=== PATIENT | female | born 1955 | race Caucasian/White ===

== ENCOUNTER 2016-12-12 07:32 | Emergency (ER) | payer BC ==
[2016-12-12 07:40] VITALS: BP 135/70
[2016-12-12] MEDS ORDERED: Ketorolac INJ* 60 MG/2 ML VIAL IM ONE (08:03)
--- NOTE | 2016-12-12 08:42 | RAD ---
INDICATION: Left shoulder injury. TECHNIQUE: 4 views of the left shoulder were obtained. FINDINGS: The bones are in normal alignment. No fracture is seen. There is a small calcific density adjacent to the superolateral aspect of the humeral head suggestive of calcific tendinitis. Joint spaces appear maintained. IMPRESSION: FINDINGS SUGGESTIVE OF CALCIFIC TENDINITIS.
--- NOTE | 2016-12-12 09:13 | UC ---
Saul Hernandez Benjamin, scribed for Gaby Vu MD on 12/12/16 at 0806 . Shoulder Pain HPI - HPI Summary HPI Summary: 61yo female c/o sudden onset severe left shoulder pain since Sunday that has gotten significantly worse since yesterday. Pt has hx of removal of left shoulder bone spur that wrapped around her nerve 15 years ago. Pt states that her current pain feels exactly the same as her bone spur. Pain does not radiate down to the arm. Took aspirin for pain control, but not much relief. Pt has a DM hx. - History of Current Complaint Chief Complaint: UCUpperExtremity Stated Complaint: LEFT SHOULDER PAIN Time Seen by Provider: 12/12/16 07:35 Hx Obtained From: Patient ?: No Onset/Duration: Sudden Onset, Lasting Days - 4 days, Still Present, Worse Since - yesterday Timing: Constant Severity Initially: Moderate Severity Currently: Severe - q Location Of Pain: Is Discrete @ - Left shoulder Pain Intensity: 10 Pain Scale Used: 0-10 Numeric Aggravating Factor(s): Movement, Abduction Alleviating Factor(s): Elevation Associated Signs And Symptoms: Positive: Negative - Allergies/Home Medications Allergies/Adverse Reactions: Allergies Allergy/AdvReac Type Severity Reaction Status Date / Time OBEY Inhibitors Allergy Severe Swelling Verified 06/19/13 13:14 Of Face,Lips,& Throat Angiotensin Receptor Blockers Allergy Severe Swelling Verified 05/13/13 11:39 Of Face,Lips,& Throat Home Medications: Home Medications Aspirin [Clint Aspirin] 650 mg PO 12/12/16 [History] Atenolol TAB* [Tenormin TAB* 50 MG] 50 mg PO DAILY 12/12/16 [History Confirmed 12/12/16] Desloratidine (NF) [Clarinex (NF)] 5 mg PO 12/12/16 [History] Docusate Sodium [Dss] 100 mg PO 12/12/16 [History] Exenatide [Bydureon] 2 mg SC WEEKLY 12/12/16 [History Confirmed 12/12/16] Insulin Aspart [Novolog Flexpen] 18 unit SC BID 12/12/16 [History Confirmed ] Insulin Glargine [Lantus] 19 unit SC BID 12/12/16 [History Confirmed 12/12/16] LevoCETirizine TAB (NF) [Xyzal TAB (NF)] 5 mg PO DAILY 12/12/16 [History Confirmed 12/12/16] Omeprazole [Prilosec] 20 mg PO 12/12/16 [History] PMH/Surg Hx/FS Hx/Imm Hx Endocrine History Of: Reports: Diabetes - NIDDM Cardiovascular History Of: Reports: Hypertension Respiratory History Of: Reports: Asthma - with pneumonia Other History Of: Negative For: Anticoagulant Therapy - Surgical History Surgical History: Yes Surgery Procedure, Year, and Place: removal of a bone spur, appy, hysterectomy, abd hernia repai X7, fundalplacation, choey - Family History Known Family History: Positive: Other - multiple CA - Social History Occupation: Employed Full-time Lives: Alone Alcohol Use: None Substance Use Type: None Smoking Status (MU): Never Smoked Tobacco Review of Systems Constitutional: Negative Skin: Negative Eyes: Negative ENT: Negative Respiratory: Negative Cardiovascular: Negative Gastrointestinal: Negative Genitourinary: Negative Motor: Negative Neurovascular: Negative Musculoskeletal: Arthralgia - left shoulder pain Neurological: Negative Psychological: Negative All Other Systems Reviewed And Are Negative: Yes Physical Exam Triage Information Reviewed: Yes Appearance: Well-Nourished, Pain Distress Vital Signs: Initial Vital Signs Temp 96.8 F 12/12/16 07:36 Pulse 96 12/12/16 07:36 Resp 18 12/12/16 07:36 BP 135/70 12/12/16 07:36 Pulse Ox 96 12/12/16 07:36 Vital Signs Reviewed: Yes Eye Exam: Normal ENT Exam: Normal Neck exam: Normal - no adenopathy appreciated Respiratory Exam: Normal - no dyspnea, no tachypnea Respiratory: Positive: Chest non-tender, Lungs clear, Normal breath sounds, No respiratory distress, No accessory muscle use Cardiovascular Exam: Normal - heart rate regular, good general skin color, good capillary refill correlates with L radial pulse. Cardiovascular: Positive: RRR, No Murmur, Pulses Normal Abdominal Exam: Normal Abdomen Description: Positive: Nontender, No Organomegaly, Soft Bowel Sounds: Positive: Present Musculoskeletal Exam: Other - Subj tenderness L upper deltoid region. + sens axillary nerve to LT. Distal sens LT intact. R/U pp 2+ equal. Hand grasp good. Able to straighten elbow ok, from wrist. + spasm noted post elbow, extending to neck and upper back. Mild tender ac area, but particularly tender lat humeral head and tendon insertion. PT prefers to keep hand above her head to feel better. Neurological Exam: Normal - nonfocal, grossly intact Psychological Exam: Normal - conversing easily and appropriately. Appropriately tearful. Skin Exam: Normal Diagnostics - Radiology Left shoulder XR Radiology Interpretation Completed By: Radiologist Shoulder Course/Dx - Course Course Of Treatment: No new problems in CCC. Considered below differential dx' s. Pt declines PO pain medications. Did accept ketorolac IM 60mg (no known renal f.). She is driving. Sling offered, pt declined. Her previous orthopedic surgeon has retired. I called Dr. Muñiz, orthop department chairperson. Not available at time of pt discharge. She will call to schedule an appointment. ISTOP reviewed. Reference #: [id number]. Rx norco #20 (narc talk, denies addiction hx). Rx naproxen # 30. She is aware to keep a close eye on blood sugars. See avs instructions re f/u plan. Ms. Todd was given the opportunity to ask several insightful questions, to which I answered to the best of my ability. Assessment/Plan: Calcific tendonitis L shoulder with acute exacerbation of pain - Differential Dx/Diagnosis Provider Diagnoses: L shoulder calcific tendonitis with acute pain - Physician Notification/Consults Discussed Patient Care With: Paged Dr. Muñiz (Ortho on-call) @[phone]. Per his nurse, Dr. Muñiz will call back once he is available. Discharge - Discharge Plan Condition: Stable Disposition: HOME Prescriptions: HYDROcodone/ACETAMIN 5-325 MG* [[place] 5-325 TAB*] 2 tab PO Q6H PRN #20 tab MDD 8 PRN Reason: Pain Naproxen [Naproxen 500 MG TABS] 500 mg PO BID PRN #30 tab PRN Reason: inflammation Patient Education Materials: Calcific Tendinitis (ED) Forms: *Work Release Referrals: David Taylor MD [Primary Care Provider] - Garret Muñiz MD [Medical Doctor] - Additional Instructions: Follow up with Dr. Taylor (PCP) per routine. Do call his office to let him know how you are feeling. Follow up with Dr. Muñiz ([facility] Orthopedic surgery) this week. Position of comfort for your shoulder. A sling may be helpful once the current level of inflammation improves. Please seek medical attention for worse or new problems in the meantime. The documentation as recorded by the Saul skinner Benjamin accurately reflects the service I personally performed and the decisions made by me, Gaby Vu MD.
== END 2016-12-12 09:12 | disposition home or self-care (01) ==
LOC: UCEAST 07:32
DX: M75.32 Calcific tendinitis of left shoulder (principal)
CPT/HCPCS: 99213; G0463; J1885

== ENCOUNTER 2017-02-21 08:01 | Inpatient (IN) | payer BC ==
[~2017-02-21 08:01] MED LIST: Buffered Lidocaine 1% SYRIN* 3 ML/SYR SYRINGE INTRADERM ONE; Famotidine IV* 10 MG/ML 2 ML (20 mg) IV ONE; Insulin REGULAR(*) 1 UNITS UNIT SUBCUT ONE
[2017-02-21] MEDS ORDERED: Famotidine IV* 10 MG/ML 2 ML (20 mg) ONE (08:15)
[2017-02-21] MEDS ORDERED: ceFAZolin 2 GM PREMIX(*) 2 GM/50 ML BAG IVPB ONE (08:15)
[2017-02-21] MEDS ORDERED: ceFAZolin 1 GM in Dextrose (*) 1 GM/50 ML BAG IVPB ONE (08:15)
[2017-02-21] MEDS ORDERED: Midazolam* 1 MG/ML 5 ML VIAL (5 MG) ONE (08:33)
[2017-02-21] MEDS ORDERED: fentaNYL* 50 MCG/ML 2 ML VIAL (100 MCG VIAL) ONE (08:33)
[2017-02-21] MEDS ORDERED: Dexamethasone IV* 4 MG/ML 1 ML (4 MG) ONE (08:36)
[2017-02-21] MEDS ORDERED: Ketorolac INJ* 30 MG/ML 1 ML VIAL ONE (08:36)
[2017-02-21] MEDS ORDERED: Succinylcholine* 20 MG/ML 10 ML VIAL ONE (08:36)
[2017-02-21] MEDS ORDERED: Ondansetron INJ* 2 MG/ML VIAL ONE ×2 (08:36→17:46)
[2017-02-21] MEDS ORDERED: DiMENhydriNATE IV* 50 MG/ML VIAL ONE (08:36)
[2017-02-21] MEDS ORDERED: Propofol* 10 MG/ML 20 ML BTL IV PUSH ONE ×2 (08:36→13:51)
[2017-02-21] MEDS ORDERED: Lidocaine 2% PF* 5 ML VIAL ONE (08:36)
[2017-02-21] MEDS ORDERED: ROPIVACAINE 5 MG/ML 30 ML BTL (0.5%) ONE (08:39)
[2017-02-21] MEDS ORDERED: Bupivacaine 0.25% SDV* 30 ML ONE (10:29)
[2017-02-21] MEDS ORDERED: KETAMINE HCL* 50 MG/ML 10 ML VIAL ONE (10:47)
[2017-02-21] MEDS ORDERED: fentaNYL* 50 MCG/ML 5 ML VIAL (250 MCG VIAL) ONE (11:15)
[2017-02-21] MEDS ORDERED: Phenylephrine IV* 40 MCG/ML 10 ML SYRINGE ONE (11:32)
[2017-02-21] MEDS ORDERED: EPHEDrine (Pressors)* 50 MG/ML VIAL ONE (11:32)
[2017-02-21] MEDS ORDERED: Acetaminophen TAB* 325 MG PO PRN (11:45)
[2017-02-21] MEDS ORDERED: DiMENhydriNATE IV* 50 MG/ML VIAL IV PUSH PRN (11:45)
[2017-02-21] MEDS ORDERED: HYDROmorphone* 1 MG/ML 1 ML SYR IV PRN (11:45)
[2017-02-21] MEDS ORDERED: oxyCODONE TAB* 5 MG TAB PO PRN ×2 (11:45→16:25)
[2017-02-21] MEDS ORDERED: Insulin REGULAR(*) 1 UNITS UNIT SUBCUT ONE (11:47)
[2017-02-21] MEDS ORDERED: HYDROmorphone* 1 MG/ML 1 ML SYR ONE (12:09)
[2017-02-21] MEDS ORDERED: methylPREDNISolone ACETATE 80* 80 MG/ML 1 ML VIAL ONE (12:16)
[2017-02-21] MEDS ORDERED: oxyCODONE/Acetamin 5/325 MG* TAB ONE (14:47)
[2017-02-21] MEDS ORDERED: Ondansetron INJ* 2 MG/ML VIAL IV PRN (16:25)
[2017-02-21] MEDS ORDERED: Magnesium Hydroxide LIQ* 30 ML UDC PO PRN (16:25)
[2017-02-21] MEDS ORDERED: diPHENhydraMINE IV* 50 MG/ML 1 ml VIAL (BENADRYL) IV PRN (16:25)
[2017-02-21] MEDS ORDERED: oxyCODONE/Acetamin 5/325 MG* TAB PO PRN ×2 (16:25)
[2017-02-21] MEDS ORDERED: Dextrose 50% Syringe 50 ML* 25 GM/50 ML SYRINGE IV PUSH PRN (17:16)
[2017-02-21 18:35] LABS: FIO2 4
[2017-02-21 18:38] LABS: PCO2 Arterial 52 mmHg (35-45)
[2017-02-21] MEDS: ceFAZolin 1 GM in Dextrose (*) 1 GM/50 ML BAG IVPB SCH (18:48)
[2017-02-21] MEDS ORDERED: Insulin LISPRO* 1 UNITS UNIT SUBCUT ONE (18:59)
[2017-02-21] MEDS: Insulin LISPRO* 1 UNITS UNIT SUBCUT SCH (19:01)
--- NOTE | 2017-02-21 20:52 | CONS ---
MEDICAL CONSULTATION REPORT: DATE OF CONSULT: DATE OF DICTATION: 02/21/17 PRIMARY CARE PROVIDER: Dr. David Taylor. REQUESTING PROVIDER: Dr. Noble. CONSULTING PROVIDER: SUMAN Casas SUPERVISING PHYSICIAN: Dr. Diana Saleh. CHIEF COMPLAINT: Hypoxia status post left shoulder arthroscopy. HISTORY OF PRESENT ILLNESS: This is a 61-year-old female with a history of obstructive sleep apnea for which she is noncompliant with CPAP, as well as morbid obesity, insulin-dependent diabetes, hypertension, hyperlipidemia, anxiety and depression, irritable bowel syndrome, and peripheral neuropathy, who underwent left shoulder arthroscopy with Dr. Noble earlier today. The patient has been noted to be significantly hypoxic in the postoperative period even several hours following general anesthesia. The patient is now awake and alert, but still desaturates occasionally into the mid 70s while on 2 to 3 L via nasal cannula. The patient states that she is asymptomatic denying chest pain or shortness of breath. She believes that her last sleep study was over 20 years ago when she was first diagnosed with obstructive sleep apnea. She does have a CPAP machine at home, but as stated above has not used it in several years. In regards to diabetes control, the patient states that her fasting blood glucose is between 150 and 200 mg/dL. Her last hemoglobin A1c was 7.8%. She denies any recent severe infections or other hospitalizations. The patient was seen by her primary care provider, Dr. Taylor, preoperatively. She does not have any known cardiac history apart from her obstructive sleep apnea. Has no history of chronic respiratory disease. PAST MEDICAL HISTORY: 1. Hypertension. 2. GERD. 3. Hyperlipidemia. 4. Insulin-dependent diabetes. 5. Anxiety. 6. Depression. 7. Chronic anemia. 8. Irritable bowel syndrome. 9. Obstructive sleep apnea, noncompliant with CPAP. 10. Morbid obesity with a BMI of 48. 11. Peripheral neuropathy. PAST SURGICAL HISTORY: 1. Appendectomy. 2. History of left shoulder surgery. 3. Hysterectomy. 4. Multiple abdominal hernia repairs. 5. Fundoplication. 6. Cholecystectomy. HOME MEDICATIONS: 1. Vitamin C 500 mg p.o. b.i.d. 2. Excedrin Extra Strength 2 tablets p.o. t.i.d. as needed for pain. 3. Atenolol 50 mg p.o. daily. 4. Vitamin D3 1000 units p.o. daily. 5. Clarinex 5 mg p.o. daily. 6. Docusate 100 mg p.o. twice daily. 7. Exenatide 2 subcu on Mondays. 8. Fluoxetine 40 mg p.o. daily. 9. NovoLog 18 units subcu at meal time. 10. Lantus 19 units subcu twice daily. 11. Levocetirizine 5 mg p.o. at bedtime. 12. Naproxen 500 mg p.o. b.i.d. 13. Omeprazole 20 mg p.o. daily. 14. Oxybutynin 5 to 10 mg p.o. twice daily. 15. Lyrica 100 mg p.o. at bedtime. 16. Simvastatin 20 mg p.o. at bedtime. SOCIAL HISTORY: The patient has a remote smoking history with about 15-pack year, quit about 20 years ago. She currently lives at home with her . REVIEW OF SYSTEMS: As noted above in HPI. Otherwise, the patient is denying current pain in her shoulder, abdominal pain, nausea, or vomiting. She denies any other acute complaints. PHYSICAL EXAM: Most recent vitals, temperature 97.5 degrees Fahrenheit, pulse 77 beats per minute, respiratory rate 20 per minute, oxygen saturation 90% on 2 L, blood pressure 147/73 mmHg, of note, the patient would drop into the mid 80s with speaking during interview on 3 L via nasal cannula. General: This is a pleasant 61-year-old female accompanied by her , in no acute distress. She has a left shoulder sling in place and is sitting upright in the recovery area. HEENT: Head is normocephalic, atraumatic with a moist mucous membrane. Cardiovascular: Heart has a regular rate and rhythm without murmurs, rubs, or gallops. Respiratory: Lungs are clear to auscultation without wheezes, crackles , or rhonchi. Abdomen: Abdomen is soft and nontender to palpation. Extremities: No lower extremity edema. Left shoulder is in an immobilizer. Psych: The patient is alert and appropriately oriented. Skin: Limited exam shows no concerning rashes or lesion. DIAGNOSTIC STUDIES/LAB DATA: Reviewed labs from 02/14/17, which included a CBC , hemoglobin A1c, and basic metabolic panel. CBC was unremarkable with a preop hemoglobin of 12.9 g/dL. Basic metabolic panel was also unremarkable with a preop creatinine of 0.70 and hemoglobin A1c of 7.8%. Imaging: Preoperative EKG demonstrated a normal sinus rhythm. ASSESSMENT AND PLAN: This is a 61-year-old female with a significant medical history including morbid obesity, insulin-dependent diabetes, obstructive sleep apnea for which she is noncompliant with CPAP, as well as hypertension, hyperlipidemia, anxiety, depression, irritable bowel, and gastroesophageal reflux disease, who underwent left shoulder arthroscopy with Dr. Noble earlier today and remains profoundly hypoxic several hours after anesthesia. Hospitalist group has been consulted for medical management. 1. Status post left shoulder arthroscopy - management per orthopedic surgery team. 2. Hypoxia - the patient is currently asymptomatic and appears to be mentating well. We will plan to monitor in ICU overnight. The patient will require CPAP when in a drowsy or sleeping state. Recommend obtaining an ABG at this time to help to assess if this is purely difficulty with oxygenation or if we also need to be concerned about hypercarbia. We will maintain supplemental oxygen via nasal cannula. While awake, she may require high flow for some additional positive pressure to help to maintain her airway patency. 3. Insulin-dependent diabetes - the patient reports fair control with her diabetes at home. We plan to reproduce her home insulin coverage including Lantus for the equivalent of 40 mg subcu daily and sliding scale Humalog at meal times. 4. Morbid obesity with a BMI of 48. 5. Hypertension - the patient is mildly hypertensive. She is normotensive at this time. We will plan to continue her home atenolol. 6. Hyperlipidemia. 7. Anxiety and depression. 8. Irritable bowel syndrome. 9. Peripheral neuropathy - continue Lyrica. 10. Code status - the patient is full code. 11. Healthcare proxy is her . 12. DVT prophylaxis is per orthopedic surgery team. DISPOSITION: Recommend ICU placement at least for this evening and can reevaluate tomorrow. Hospitalist group will continue to follow along with this patient. SUMAN CASAS CC: Dr. David Taylor; Dr. Noble* [id number]/[facility] #: [id number] [facility]
[2017-02-21] MEDS ORDERED: Insulin GLARGINE(*) 1 UNITS UNIT SUBCUT SCH (21:00)
[2017-02-21] MEDS: Docusate CAP* 100 MG PO SCH (21:24)
[2017-02-21] MEDS: Pregabalin CAP(*) 100 MG PO SCH (21:25)
[2017-02-21] MEDS: Oxybutynin TAB* 5 MG PO SCH (21:26)
[2017-02-21] MEDS: CMCS Simvastatin TAB(NF) 20 MG TAB PO SCH (21:26)
[2017-02-22] MEDS: ceFAZolin 1 GM in Dextrose (*) 1 GM/50 ML BAG IVPB SCH ×3 (00:49→06:02)
--- NOTE | 2017-02-22 02:19 | OP ---
DATE OF OPERATION: 02/21/17 - ROOM #ICU-02 DATE OF : 59 SURGEON: Raymond Noble MD DIETARY AIDE COOK: SUMAN Ricks. Rn Quality was needed through the entirety of the case to help positioning, retraction, was utilized throughout all portion of the case. ANESTHESIOLOGIST: Dr. Bolton. ANESTHESIA: General. PRE-OP DIAGNOSES: Left shoulder impingement, AC joint arthritis, bicipital tendonitis. POST-OP DIAGNOSES: Impingement, adhesive capsulitis, bicipital tendonitis, AC joint arthritis. OPERATIVE PROCEDURE: 1. Left shoulder arthroscopy with extensive glenohumeral debridement. 2. Lysis of adhesions. 3. Revision, subacromial decompression with acromioplasty. 4. Distal clavicle excision. 5. Manipulation under anesthesia. 6. Subacromial injection of 80 mg of Depo-Medrol. COMPLICATIONS: She did take half an hour to wake up from anesthesia and required admission into the hospital to maintain saturations. DISPOSITION: Stable. INDICATIONS: Tammy Todd is a 61-year-old female with a previous history of shoulder pain and underwent open surgical decompression which she tolerated quite well more than 10 years ago. She had recurrence of her symptoms. Again, she had some evidence of impingement as well as some loss of motion. She has tried anti- inflammatories as well as Medrol Dosepak, which helped brought her relief. She is a very poorly controlled diabetic blood glucoses that average in 200s and 300s. After an extensive discussion of the risks and benefits of the surgery versus nonoperative treatment, she has elected to proceed with surgical treatment. Risks included but are not limited to bleeding, infection, damage to nerves, vessels, surrounding structures, wound not healing, persistent pain, tearing of the rotator cuff, incomplete relief of symptoms, stiffness, persistent pain, scarring, risk of DVT, risk of anesthesia and she has elected to proceed with surgery. We did discuss that if she has a rotator cuff tear, I would not repair due to her brittle diabetes and the fact that there is a good chance that this would not heal given her body habitus as well as her uncontrolled diabetes. She verbalized understanding. DESCRIPTION OF PROCEDURE: The patient was greeted in the preoperative area by the attending surgeon. Correct extremity was marked, consent was confirmed. The patient was then brought back to the operating suite where she was placed in a supine position on the operating room table. She then underwent endotracheal intubation which she tolerated without difficulty and the patient was then carefully placed in the right lateral decubitus position with an axillary roll. All bony prominences were padded. The left arm was draped unsterile from the traction frame with 10 pounds of traction. She was supported with a peg board. The left shoulder was then prepped and draped in the usual sterile fashion beginning with chlorhexidine soap, scrub and alcohol wipe and a final prep of ChloraPrep. After appropriate surgical pause indicating side, site, procedure, and administration of antibiotics, the posterior lateral portal was made and the scope was brought into the subacromial space. The joint was very hard to access due to the adhesive capsulitis and the contractures of the capsule. The subacromial space was then accessed. The lateral portal was made in an outside- in fashion. There was evidence of abundant hyperemic bursa that was present. The shaver removed the bursa that was present. The cuff was probed and found to be intact. There was no obvious bursal sided tearing. The undersurface of the acromion was skeletonized. The previous sutures from her open surgery were visualized as well, but they were left intact. There was a moderate size anterior lateral spur along with another irregular spur as well as AC joint arthritis. The AC joint was identified and skeletonized as well. It was very stenotic. The 4-0 oval connor was then used to do an acromioplasty which did allow for removing any impingement of any spurs. Then attention was directed to the clavicle. The bur was brought into the anterior portal and the distal clavicle excision was done. Approximately 8 mm of distal clavicle was excised using the arthroscopic connor. The images were visualized and the clavicle was mobilized and found to no longer impinge. At this point, the joint was attempted to be accessed. Again, the tissues were very, very tight. The scope was able to be positioned into the joint. The rotator cuff was visualized and had high grade partial thickness tearing on the articular surface. The anterior portal was made in an outside-in fashion. The biceps was found to be scarred anteriorly. The subscap was ill defined. Her shoulder, there were very tight tissues all around. The electrocautery device was used to perform the biceps tenotomy. The MGHL as well as the abundant scar anteriorly was then carefully released as well as scar about the interval. Care was taken not to damage the rotator cuff particularly the subscapularis. The glenoid had grade 1 changes. The humeral head had grade 1 to 2 changes. The undersurface of the rotator cuff had damaged , specifically the supraspinatus tendon. However, again the decision was made to not repair this due to the fact that she is brittle diabetic and she has such severe adhesive capsulitis that this would affect her outcome. Once the debridement was complete, all fluid and debris were removed from the shoulder and needle was placed intra-articularly to place 20 cc of 0.24% Marcaine. A total of 60 cc were injected about the shoulder. 80 mg of Depo-Medrol was injected into the subacromial space. Sterile dressings were applied and she was awoken from anesthesia. This did take some time. She took half an hour or so to wake up from her procedure, but she was stable on transfer to the PACU in stable condition. POSTOPERATIVE PLAN: She will be in the sling up to the first week. She will come out as tolerated. I will have her start physical therapy in the next week. She will be discharged on pain medications as well as antibiotics due to her brittle diabetes and a revision surgery. I will discuss at length the fact that the patient does have a high-grade partial thickness rotator cuff tear that may be amendable to treatment, but she will need to have her diabetes under control prior to any treatment if she is still symptomatic. I will see the patient back in 10 to 14 days. DVTs prophylaxis was discussed, but deferred due to no previous personal or family history. She will likely be admitted with medicine consulting due to her difficulty waking up and saturation issues. CC: [place], [place] [id number]/[facility] #: [id number] [facility]
--- NOTE | 2017-02-22 07:56 | PN ---
Subjective - Subjective Reason for Note: Consultation Note History: Tammy Todd is 1 day post left shoulder arthroscopy. She developed respiratory failure post operatively with the ABGs showing low pO2 and high pCO2. She is morbidly obese and has sleep apnea - she doesn't use her home CPAP machine. She was kept in the ICU overnight and wore her CPAP. She is feeling improved this morning and her oxygenation is 98% on NC with a fI02 of 2.5 liters. She denies any chest pain, dyspnea, cough, sputum or palpitations. Her type 2 diabetes mellitus is not at target. Active Problems: Active Problems Respiratory failure with hypercapnia (Acute) J96.92 GERD (gastroesophageal reflux disease) (Chronic) K21.9 Gastroparesis (Chronic) K31.84 Hiatal hernia (Chronic) K44.9 History of arthroscopy of left shoulder (Chronic) Z98.890 Morbid obesity (Chronic) E66.01 Peripheral neuropathy (Chronic) G62.9 Sleep apnea (Chronic) G47.30 Type 2 diabetes mellitus (Chronic) Current Medications: Current Medications Acetaminophen (Tylenol Tab*) 650 mg PO Q4H PRN PRN Reason: PAIN OR TEMPERATURE Atenolol (Tenormin Tab*) 50 mg PO QAM [facility] Dextrose (D50w Syringe 50 Ml*) 12.5 gm IV PUSH .FOR FS < 60 - SS PRN PRN Reason: FS < 60 Diphenhydramine HCl (Benadryl Iv*) 25 mg IV Q6H PRN PRN Reason: itching or sleep Docusate Sodium (Colace Cap*) 100 mg PO BID [facility] Last Admin: 02/21/17 21:24 Dose: 100 mg Fluoxetine HCl (Prozac Cap*) 40 mg PO QAM [facility] Lactated Ringer's (Lactated Ringers 1000 Ml Bag*) 1,000 mls @ 125 mls/hr IV PER RATE [facility] Last Admin: 02/21/17 17:59 Dose: 125 mls/hr Insulin Glargine (Lantus(*)) 40 units SUBCUT 2100 [facility] Last Admin: 02/21/17 21:24 Dose: 40 units Insulin Human Lispro (Humalog*) 0 units SUBCUT AC BEN PRN Reason: Protocol Last Admin: 02/21/17 19:01 Dose: 6 units Magnesium Hydroxide (Milk Of Magnesia Liq*) 30 ml PO Q6H PRN PRN Reason: constipation Non-Formulary Medication (Exenatide [Bydureon Pen]) 2 mg SC MO [facility] Ondansetron HCl (Zofran Inj*) 4 mg IV Q6H PRN PRN Reason: nausea Oxybutynin Chloride (Ditropan Tab*) 5 mg PO BID [facility] Last Admin: 02/21/17 21:26 Dose: 5 mg Oxycodone HCl (Roxycodone Tab*) 10 mg PO Q4H PRN PRN Reason: PAIN - SEVERE Oxycodone/Acetaminophen (Percocet 5/325 Tab*) 1 tab PO Q4H PRN PRN Reason: PAIN - MILD TO MODERATE Oxycodone/Acetaminophen (Percocet 5/325 Tab*) 2 tab PO Q4H PRN PRN Reason: PAIN - MODERATE TO SEVERE Last Admin: 02/21/17 21:25 Dose: 2 tab Pregabalin (Lyrica Cap(*)) 100 mg PO BEDTIME [facility] Last Admin: 02/21/17 21:25 Dose: 100 mg Simvastatin (Zocor(Nf)) 20 mg PO BEDTIME [facility] Last Admin: 02/21/17 21:26 Dose: 20 mg Home Medications: Home Medications Medication Instructions Recorded Confirmed Type Ascorbic Acid TAB* [Vitamin C 500 mg PO BID 05/11/13 02/21/17 History TAB*] Cholecalciferol [D3] 1,000 unit PO QAM 05/11/13 02/21/17 History FLUoxetine CAP* [PROzac CAP*] 40 mg PO QAM 05/11/13 02/21/17 History Oxybutynin TAB* [Ditropan TAB*] 5 - 10 mg PO BID 05/11/13 02/21/17 History Pregabalin CAP(*) [Lyrica CAP(*)] 100 mg PO BEDTIME 05/11/13 02/21/17 History Simvastatin 20 mg PO BEDTIME 05/11/13 02/21/17 History Atenolol TAB* [Tenormin TAB* 50 MG] 50 mg PO QAM 12/12/16 02/21/17 History Desloratidine (NF) [Clarinex (NF)] 5 mg PO QAM 12/12/16 02/21/17 History Docusate Sodium [Dss] 100 mg PO BID 12/12/16 02/21/17 History Exenatide [Bydureon] 2 mg SC MO 12/12/16 02/21/17 History Insulin Aspart [Novolog Flexpen] 18 unit SUBCUT AC PRN 12/12/16 02/14/17 History Insulin Glargine [Lantus] 19 unit SC BID 12/12/16 02/21/17 History LevoCETirizine TAB (NF) [Xyzal TAB 5 mg PO BEDTIME 12/12/16 02/21/17 History (NF)] Omeprazole [Prilosec] 20 mg PO QAM 12/12/16 02/21/17 History Deadjyh-Ctlpigytuldda-Anblskpw 2 tab PO TID PRN 02/14/17 02/14/17 History [Excedrin Extra Strength] Epinephrine [Epipen 2-Chuy] 1 inj INJ PRN 02/14/17 History Naproxen [Naproxen 500 MG TABS] 500 mg PO BID 02/14/17 02/14/17 History Allergies: Allergies Allergy/AdvReac Type Severity Reaction Status Date / Time OBEY Inhibitors Allergy Severe Swelling Verified 02/21/17 08:21 Of Face,Lips,& Throat Angiotensin Receptor Blockers Allergy Severe Swelling Verified 02/21/17 08:21 Of Face,Lips,& Throat Objective - Vital Signs Vital Signs: Vital Signs 02/21/17 02/21/17 02/21/17 08:26 13:00 13:05 Temperature 98.1 F 96.8 F Pulse Rate 81 77 76 Respiratory 16 20 20 Rate Blood Pressure 154/81 174/86 162/76 (mmHg) O2 Sat by Pulse 93 98 98 Oximetry 02/21/17 02/21/17 02/21/17 13:10 13:15 13:30 Temperature Pulse Rate 78 80 86 Respiratory 20 20 20 Rate Blood Pressure 169/74 169/72 165/74 (mmHg) O2 Sat by Pulse 99 99 99 Oximetry 02/21/17 02/21/17 02/21/17 13:45 14:00 14:30 Temperature 97.5 F Pulse Rate 80 82 83 Respiratory 18 20 18 Rate Blood Pressure 156/74 165/79 143/77 (mmHg) O2 Sat by Pulse 95 96 93 Oximetry 02/21/17 02/21/17 02/21/17 15:00 15:30 16:00 Temperature Pulse Rate 84 82 79 Respiratory 14 18 18 Rate Blood Pressure 144/69 147/69 140/72 (mmHg) O2 Sat by Pulse 96 91 88 Oximetry 02/21/17 02/21/17 02/21/17 16:30 17:00 17:36 Temperature Pulse Rate 77 80 84 Respiratory 20 18 20 Rate Blood Pressure 147/73 143/72 149/78 (mmHg) O2 Sat by Pulse 90 91 90 Oximetry 02/21/17 02/21/17 02/21/17 17:51 17:54 18:00 Temperature Pulse Rate 77 75 Respiratory 17 18 Rate Blood Pressure 169/60 153/67 (mmHg) O2 Sat by Pulse 91 94 Oximetry 02/21/17 02/21/17 02/21/17 18:15 18:18 18:30 Temperature 98.0 F Pulse Rate 72 74 74 Respiratory 16 18 17 Rate Blood Pressure 137/67 145/58 145/58 (mmHg) O2 Sat by Pulse 94 93 95 Oximetry 02/21/17 02/21/17 02/21/17 18:45 19:00 19:15 Temperature Pulse Rate 74 72 82 Respiratory 17 16 17 Rate Blood Pressure 154/68 136/58 148/119 (mmHg) O2 Sat by Pulse 95 97 96 Oximetry 02/21/17 02/21/17 02/21/17 19:30 20:00 21:00 Temperature 97.5 F Pulse Rate 82 81 80 Respiratory 18 18 15 Rate Blood Pressure 142/61 105/86 133/61 (mmHg) O2 Sat by Pulse 97 98 91 Oximetry 02/21/17 02/21/17 02/21/17 22:00 22:22 23:00 Temperature Pulse Rate 80 77 Respiratory 15 15 15 Rate Blood Pressure 134/62 139/60 (mmHg) O2 Sat by Pulse 91 94 Oximetry 02/21/17 02/21/17 02/22/17 23:21 23:22 00:00 Temperature 97.5 F Pulse Rate 87 Respiratory 18 16 Rate Blood Pressure (mmHg) O2 Sat by Pulse 91 97 Oximetry 02/22/17 02/22/17 02/22/17 00:01 00:32 01:00 Temperature Pulse Rate 86 73 78 Respiratory 17 16 18 Rate Blood Pressure 136/66 141/61 (mmHg) O2 Sat by Pulse 83 97 98 Oximetry 02/22/17 02/22/17 02/22/17 02:00 03:00 03:55 Temperature 98.7 F Pulse Rate 75 74 Respiratory 17 14 Rate Blood Pressure 130/54 115/53 (mmHg) O2 Sat by Pulse 91 92 Oximetry 02/22/17 02/22/17 02/22/17 04:00 05:00 06:00 Temperature Pulse Rate 75 85 68 Respiratory 15 19 13 Rate Blood Pressure 117/54 135/68 129/57 (mmHg) O2 Sat by Pulse 94 94 92 Oximetry 02/22/17 07:00 Temperature Pulse Rate 74 Respiratory 14 Rate Blood Pressure 128/62 (mmHg) O2 Sat by Pulse 95 Oximetry - Intake and Output Intake and Output: Intake & Output 02/19/17 02/20/17 02/21/17 02/22/17 11:59 11:59 11:59 11:59 Intake Total 100 2805 Output Total 500 Balance 100 2305 Weight 266 lb 275 lb 12.772 oz Intake: IV Fluids 100 1800 3GM CEFAZOLIN 100 LR 1800 IVPB 165 ABX 165 Oral 840 Output: Urine 500 Other: Estimated Void Large # Voids 2 ADLs: Meal Record Start: 02/21/17 18: 18 Freq: 09,13,18 Status: Active Created 02/21/17 18:18 System (Rec: 02/21/17 18:18 System [id number]) Intake and Output Start: 02/21/17 16: 27 Freq: 06,14,2200 Status: Active Created 02/21/17 16:43 [id number] (Rec: 02/21/17 16:43 [facility] [id number]) Document 02/21/17 22:00 [id number] (Rec: 02/21/17 22:22 [id number]) Document 02/22/17 06:00 [id number] (Rec: 02/22/17 06:24 [id number]) Intake and Output Start: 02/21/17 18: 18 Freq: 06,14,22 Status: Cancelled Created 02/21/17 18:18 System (Rec: 02/21/17 18:18 System [id number]) - Physical Exam General: No Cyanosis, No Anemia, No Jaundice, No Clubbing Endocrine: Yes Central Obesity Lungs and Chest: Yes: Chest Expansion Full, Chest Expansion Symetrica, Percussion Note Resonant, Vessicular Breath Sounds. No: Crackles, Wheezes, Respiratory Distress, Use of Accessory Muscles Heart Rate and Rhythm: Regular JVP: Not Elevated Additional Cardiovascular: Yes: Normal Heart Sounds. No: Heart Murmur Abdominal Exam: Yes: Soft, Bowel Sounds Present. No: Distention, Abdominal Mass , Abdominal Tenderness - Extremities Cranial Nerves II-XII Intact: Yes Limbs: Normal Power, Normal Tone - Neuro Orientation: A/O x3 Speech: Normal Results - Results Lab Results: Laboratory Results - last 24 hr 02/21/17 02/21/17 02/21/17 08:39 13:01 18:25 Patient Temperature Not Reportable ABG pH 7.31 L ABG pCO2 52 H ABG pO2 69 L ABG HCO3 24.2 ABG O2 Saturation 93.4 L ABG Base Excess -0.8 Respiration Rate Not Reportable Ventilator Type Not Reportable Vent Mode Not Reportable FiO2 4 Inspiratory Time Not Reportable PEEP Not Reportable Pressure Support Not Reportable Pressure Control Not Reportable EPAP Not Reportable IPAP Not Reportable BiPAP Not Reportable POC Glucose (mg/dL) 208 H 191 H 02/21/17 18:44 Patient Temperature ABG pH ABG pCO2 ABG pO2 ABG HCO3 ABG O2 Saturation ABG Base Excess Respiration Rate Ventilator Type Vent Mode FiO2 Inspiratory Time PEEP Pressure Support Pressure Control EPAP IPAP BiPAP POC Glucose (mg/dL) 246 H Assessment - Problem List Assessment: Patient Problems Respiratory failure with hypercapnia (Acute) GERD (gastroesophageal reflux disease) (Chronic) Gastroparesis (Chronic) Hiatal hernia (Chronic) History of arthroscopy of left shoulder (Chronic) Morbid obesity (Chronic) Peripheral neuropathy (Chronic) Sleep apnea (Chronic) Type 2 diabetes mellitus (Chronic) Plan: Respiratory failure with hypercapnia (Acute) I think this is due to an uncovered Pickwickian syndrome that was exacerbated by her anesthesia/opioids. Her O2 desaturates to 90% on room air. We don't know if this is her usual oxygen saturation. She is not dyspneic. She clearly benefits from CPAP - she has a machine and has not used it at home. Today, we will try to wean her off the O2. I don't want her to have more than 2 liters fIO2 in view of the possibility her respiratory drive being O2 dependent. She does not require an ICU bed. I would avoid opioids for pain management Type 2 diabetes mellitus (Chronic) She is more insulin resistant than usual. She will need increased insulin coverage GERD (gastroesophageal reflux disease) (Chronic) secondary diagnosis Gastroparesis (Chronic) secondary diagnosis Hiatal hernia (Chronic) secondary diagnosis History of arthroscopy of left shoulder (Chronic) secondary diagnosis Morbid obesity (Chronic) secondary diagnosis Peripheral neuropathy (Chronic) secondary diagnosis Sleep apnea (Chronic) CPAP I think she can be managed on a general surgical [place]. I will discontinue telemetry. I explained the above to the patient
[2017-02-22] MEDS: FLUoxetine CAP* 20 MG PO SCH (08:27)
[2017-02-22] MEDS: Atenolol TAB* 50 MG PO SCH (08:27)
[2017-02-22] MEDS: Docusate CAP* 100 MG PO SCH ×2 (08:27→20:00)
[2017-02-22] MEDS: Oxybutynin TAB* 5 MG PO SCH ×2 (08:28→20:00)
[2017-02-22 08:36] LABS: Hematocrit 39 % (35-47); Hemoglobin 12.6 g/dl (12.0-16.0); Mean Corpuscular HGB Conc 33 g/dl (31-36); Mean Corpuscular Hemoglobin 27 pg (27-31); Mean Corpuscular Volume 84 fL (80-97); Mean Platelet Volume 8 um3 (7.4-10.4); Red Blood Count 4.59 10^6/ul (4.0-5.4); Red Cell Distribution Width 13 % (10.5-15); White Blood Count 14.7 10^3/ul (3.5-10.8)
[2017-02-22 08:50] LABS: BUN/Creatinine Ratio 29.4 (8-20); Calcium 8.9 mg/dL (8.6-10.3); EGFR African American 113.9 (>60); EGFR Non-African American 88.6 (>60); Potassium 4.1 mmol/L (3.5-5.0)
[2017-02-22] MEDS: Insulin GLARGINE(*) 1 UNITS UNIT SUBCUT SCH ×2 (08:58→20:01)
[2017-02-22] MEDS: Insulin LISPRO* 1 UNITS UNIT SUBCUT SCH ×3 (08:58→17:45)
--- NOTE | 2017-02-22 11:07 | PN ---
Progress Note - Progress Note SOAP: Subjective: []Patient seen at bedside, just transferred from the ICU. She had acute respiratory failure last evening after surgery and was admitted with consult placed to Dr. Taylor. Patient feeling well, denies current SOB, CP or dizziness. O2 sats 95% on RA currently. Objective: [] Vital Signs Temp 97.8 F 02/22/17 08:00 Pulse 74 02/22/17 08:11 Resp 17 02/22/17 08:11 BP 133/57 02/22/17 08:11 Pulse Ox 92 02/22/17 08:11 Intake & Output 02/21/17 02/22/17 02/22/17 18:59 06:59 18:59 Intake Total 1900 1005 Output Total 0 500 Balance 1900 505 Weight 266 lb 275 lb 12.772 oz Intake: IV Fluids 1900 3GM CEFAZOLIN 100 LR 1800 IVPB 165 ABX 165 Oral 840 Output: Urine 0 500 Other: Estimated Void Large # Voids 2 Laboratory Results - last 24 hr 02/21/17 02/21/17 02/21/17 08:39 13:01 18:25 WBC RBC Hgb Hct MCV MCH MCHC RDW Plt Count MPV Neut % (Auto) Lymph % (Auto) Traverse % (Auto) Eos % (Auto) Baso % (Auto) Absolute Neuts (auto) Absolute Lymphs (auto) Absolute Monos (auto) Absolute Eos (auto) Absolute Basos (auto) Absolute Nucleated RBC Nucleated RBC % Patient Temperature Not Reportable ABG pH 7.31 L ABG pCO2 52 H ABG pO2 69 L ABG HCO3 24.2 ABG O2 Saturation 93.4 L ABG Base Excess -0.8 Respiration Rate Not Reportable Ventilator Type Not Reportable Vent Mode Not Reportable FiO2 4 Inspiratory Time Not Reportable PEEP Not Reportable Pressure Support Not Reportable Pressure Control Not Reportable EPAP Not Reportable IPAP Not Reportable BiPAP Not Reportable Sodium Potassium Chloride Carbon Dioxide Anion Gap BUN Creatinine Est GFR ( Amer) Est GFR (Non-Af Amer) BUN/Creatinine Ratio Glucose POC Glucose (mg/dL) 208 H 191 H Calcium 02/21/17 02/22/17 02/22/17 18:44 08:23 08:25 WBC RBC Hgb Hct MCV MCH MCHC RDW Plt Count MPV Neut % (Auto) Lymph % (Auto) Traverse % (Auto) Eos % (Auto) Baso % (Auto) Absolute Neuts (auto) Absolute Lymphs (auto) Absolute Monos (auto) Absolute Eos (auto) Absolute Basos (auto) Absolute Nucleated RBC Nucleated RBC % Patient Temperature ABG pH ABG pCO2 ABG pO2 ABG HCO3 ABG O2 Saturation ABG Base Excess Respiration Rate Ventilator Type Vent Mode FiO2 Inspiratory Time PEEP Pressure Support Pressure Control EPAP IPAP BiPAP Sodium 135 Potassium 4.1 Chloride 101 Carbon Dioxide 27 Anion Gap 7 BUN 20 Creatinine 0.68 Est GFR ( Amer) 113.9 Est GFR (Non-Af Amer) 88.6 BUN/Creatinine Ratio 29.4 H Glucose 269 H POC Glucose (mg/dL) 246 H 276 H Calcium 8.9 02/22/17 08:26 WBC 14.7 H RBC 4.59 Hgb 12.6 Hct 39 MCV 84 MCH 27 MCHC 33 RDW 13 Plt Count 207 MPV 8 Neut % (Auto) 83.6 H Lymph % (Auto) 10.8 L Traverse % (Auto) 4.7 Eos % (Auto) 0 Baso % (Auto) 0.9 Absolute Neuts (auto) 12.3 H Absolute Lymphs (auto) 1.6 Absolute Monos (auto) 0.7 Absolute Eos (auto) 0 Absolute Basos (auto) 0.1 Absolute Nucleated RBC 0.01 Nucleated RBC % 0 Patient Temperature ABG pH ABG pCO2 ABG pO2 ABG HCO3 ABG O2 Saturation ABG Base Excess Respiration Rate Ventilator Type Vent Mode FiO2 Inspiratory Time PEEP Pressure Support Pressure Control EPAP IPAP BiPAP Sodium Potassium Chloride Carbon Dioxide Anion Gap BUN Creatinine Est GFR ( Amer) Est GFR (Non-Af Amer) BUN/Creatinine Ratio Glucose POC Glucose (mg/dL) Calcium Sling donned, left shoulder Left hand, no edema neuro intact will full finger motion and sensation old bloody drainage under tega derm dressing left shoulder Assessment: []s/p Left shoulder KVNG, arthroscopy, lysis of adhesions, revision subacromial decompression with distal clavicle excision POD #1 post operative acute respiratory failure with hypercapnia Plan: []Dr. Taylor has transferred her to [facility] today with plan of observing O2 sats, weaning off oxygen therapy Home when stable medically f/u as scheduled with Dr. Noble
[2017-02-22] MEDS: Pregabalin CAP(*) 100 MG PO SCH (20:00)
[2017-02-22] MEDS: CMCS Simvastatin TAB(NF) 20 MG TAB PO SCH (20:01)
[2017-02-22] MEDS: Acetaminophen TAB* 325 MG PO PRN (20:11)
[2017-02-23] MEDS: Acetaminophen TAB* 325 MG PO PRN (06:55)
--- NOTE | 2017-02-23 07:29 | PN ---
Progress Note - Progress Note Note: POD#2 from left shoulder SAD, DCE, biceps tenotomy, manipulation under anesthesia with a post op course complicated from desaturations and KATHLEEN. Pt comfortable today. Awake and alert. Has not worked on ROM yet. Temp Pulse Resp BP Pulse Ox 97.7 F 65 18 147/50 96 02/23/17 03:24 02/23/17 03:24 02/23/17 03:24 02/23/17 03:24 02/23/17 03:24 NAD> left shoulder dressing and sling intact. SILT distally. able to flex/ext digits and hand. 2+ radial pulse A/P POD#2 from above surgery pt needs PT today to work on ROM. no sling after 1 week. dispo per medicine recommendations and will need follow up with me in 10-14 days as scheduled. no LMWH on discharge. ROM as tolerated.
[2017-02-23] MEDS: Insulin LISPRO* 1 UNITS UNIT SUBCUT SCH ×2 (07:53→12:24)
[2017-02-23] MEDS: Atenolol TAB* 50 MG PO SCH (09:20)
[2017-02-23] MEDS: Docusate CAP* 100 MG PO SCH (09:20)
[2017-02-23] MEDS: FLUoxetine CAP* 20 MG PO SCH (09:20)
[2017-02-23] MEDS: Insulin GLARGINE(*) 1 UNITS UNIT SUBCUT SCH (09:20)
[2017-02-23] MEDS: Oxybutynin TAB* 5 MG PO SCH (09:20)
[2017-02-23 12:29] VITALS: BP 99/60
[2017-02-26] MEDS ORDERED: EXENATIDE 2 MG SC SCH (16:40)
== END 2017-02-23 14:55 | disposition home or self-care (01) | DRG 315 ==
LOC: OR 08:01 → ICU 16:27 → SSU 02-22 08:03
PROVIDERS: ADMIT Orthopaedic Surgery; ATTEND Orthopaedic Surgery
PROC: 0LN24ZZ Release Left Shoulder Tendon, Percutaneous Endoscopic Approach (ICD-10-PCS; 2017-02-21)
PROC: 0RBH0ZZ Excision of Left Acromioclavicular Joint, Open Approach (ICD-10-PCS; 2017-02-21)
PROC: 0PBB4ZZ Excision of Left Clavicle, Percutaneous Endoscopic Approach (ICD-10-PCS; 2017-02-21)
PROC: 0RNK4ZZ Release Left Shoulder Joint, Percutaneous Endoscopic Approach (ICD-10-PCS; principal; 2017-02-21 09:15)
DX: M25.812 Other specified joint disorders, left shoulder (principal); J95.821 Acute postprocedural respiratory failure; E11.65 Type 2 diabetes mellitus with hyperglycemia; E11.42 Type 2 diabetes mellitus with diabetic polyneuropathy; K31.84 Gastroparesis; Z68.43 Body mass index [BMI] 50.0-59.9, adult; E66.2 Morbid (severe) obesity with alveolar hypoventilation; M75.02 Adhesive capsulitis of left shoulder; M75.22 Bicipital tendinitis, left shoulder; M19.012 Primary osteoarthritis, left shoulder; G47.33 Obstructive sleep apnea (adult) (pediatric); I10 Essential (primary) hypertension; E11.43 Type 2 diabetes mellitus with diabetic autonomic (poly)neuropathy; E78.5 Hyperlipidemia, unspecified; K44.9 Diaphragmatic hernia without obstruction or gangrene; K21.9 Gastro-esophageal reflux disease without esophagitis; F41.9 Anxiety disorder, unspecified; F32.9 Major depressive disorder, single episode, unspecified; D53.9 Nutritional anemia, unspecified; Y83.9 Surgical procedure, unspecified as the cause of abnormal reaction of the patient, or of later complication, without mention of misadventure at the time of the procedure; Y92.238 Other place in hospital as the place of occurrence of the external cause; Z79.1 Long term (current) use of non-steroidal anti-inflammatories (NSAID); Z79.899 Other long term (current) drug therapy; Z79.4 Long term (current) use of insulin; Z87.891 Personal history of nicotine dependence; Z91.19 Patient's noncompliance with other medical treatment and regimen
CPT/HCPCS: 36415; 36600; 80048; 82803; 85025; 87641; 94660; 94760; A9270-GY; J0330; J0690; J1040; J1100; J1170; J1240; J1885; J2250; J2405; J2704; J2795; J3010

== ENCOUNTER 2018-08-19 15:04 | Emergency (ER) | payer BC ==
--- NOTE | 2018-08-19 16:59 | RAD ---
Indication: Leg edema. Duplex Doppler sonography of the deep venous system of the left lower extremity deep venous system was performed. Bilaterally the common femoral veins appear patent and compressible. Left proximal greater saphenous vein, proximal deep femoral vein, femoral vein, popliteal vein, posterior tibial veins and peroneal veins appear patent and compressible.One of the paired peroneal veins are not visualized. IMPRESSION: NO EVIDENCE OF DEEP VENOUS THROMBOSIS IS IDENTIFIED. ONE OF THE PAIRED PERONEAL VEINS ARE NOT VISUALIZED.
--- NOTE | 2018-08-19 17:24 | ED ---
Lower Extremity - HPI Summary HPI Summary: Patient complains of right knee pain, and anterior aguilar and posterior thigh cramps x 2 weeks. Denies trauma, SOB, CP, history of blood clots, , recent surgery or trauma. Patient is ambulatory with pain in right knee. Patient states right knee pain worse with weightbearing. Knee pain okay at rest. Medical history is DM 2, HTN, HDL. Nonsmoker, denies EtOH. - History of Current Complaint Chief Complaint: EDExtremityLower Stated Complaint: RT LEG PAIN Time Seen by Provider: 08/19/18 16:50 Hx Obtained From: Patient Mechanism Of Injury: Unknown Onset of Pain: Days Onset/Duration: Weeks Severity Initially: Moderate Severity Currently: Moderate Pain Intensity: 10 Pain Scale Used: 0-10 Numeric Timing: Intermittent Location: Is Discrete @ Character Of Pain: Aching Associated Signs And Symptoms: Positive: Knee Pain Aggravating Factor(s): Standing, Weight Bearing Alleviating Factor(s): Rest - Allergies/Home Medications Allergies/Adverse Reactions: Allergies Allergy/AdvReac Type Severity Reaction Status Date / Time OBEY Inhibitors Allergy Swelling Verified 08/19/18 17:08 Of Face,Lips,& Throat angiotensin receptor blockers Allergy Swelling Uncoded 08/19/18 17:08 Of Face,Lips,& Throat PMH/Surg Hx/FS Hx/Imm Hx Endocrine/Hematology History: Reports: Hx Diabetes - TYPE II- ON INSULIN AND ORAL MEDICATION FOR, Hx Thyroid Disease - HX OF A TEEN- NO PROBLEMS SINCE Denies: Hx Anticoagulant Therapy, Hx Anemia Cardiovascular History: Reports: Hx Hypertension - ON MEDICATION FOR Denies: Hx Pacemaker/ICD Respiratory History: Reports: Hx Asthma - with pneumonia-25 YEARS AGO, Hx Sleep Apnea - PATIENT STATES IS SEVERE-NO CPAP- SLEEPS ON RIGHT SIDE, Other Respiratory Problems/Disorders - pneumonia GI History: Reports: Hx Gastroesophageal Reflux Disease - ON MEDICATION FOR, Hx Hiatal Hernia - HAD SURGERY FOR, Hx Irritable Bowel Denies: Hx Jaundice History: Reports: Other Problems/Disorders - overactive bladder Musculoskeletal History: Reports: Hx Arthritis - OSTEO- BACK, Hx Back Problems, Hx Orthopedic Injury, Hx Tendonitis - CALCIFIC- LEFT SHOULDER Sensory History: Reports: Hx Cataracts - BILATERAL, Hx Contacts or Glasses - READING Denies: Hx Hearing Aid Opthamlomology History: Reports: Hx Cataracts - BILATERAL, Hx Contacts or Glasses - READING Psychiatric History: Reports: Hx Anxiety - ON MEDICATION FOR, Hx Depression - ON MEDICATION FOR Denies: Hx Panic Disorder, Hx Substance Abuse - Cancer History Hx Chemotherapy: No Hx Radiation Therapy: No - Surgical History Surgery Procedure, Year, and Place: removal of a bone spur LT SHOULDER-14 YEARS. 1968- APPENDECTOMY. 1996- hysterectomy. abd hernia repair X7,. KARAN FUNDOPLICATION & LAP [place] Hx Anesthesia Reactions: Yes - TOOK LONGER TO WAKE UP WITH EACH SURGERY - Immunization History Immunizations Up to Date: Yes Infectious Disease History: No Infectious Disease History: Denies: Hx Hepatitis, Hx Human Immunodeficiency Virus (HIV), Traveled Outside the [place] in Last 30 Days - Family History Known Family History: Positive: Other - multiple CA - Social History Alcohol Use: None Substance Use Type: Reports: None Smoking Status (MU): Former Smoker Amount Used/How Often: 1 PPD X 14 YEARS Have You Smoked in the Last Year: No Review of Systems Constitutional: Negative Eyes: Negative ENT: Negative Cardiovascular: Negative Respiratory: Negative Gastrointestinal: Negative Genitourinary: Negative Positive: Arthralgia, Myalgia Skin: Negative Neurological: Negative Psychological: Normal All Other Systems Reviewed And Are Negative: Yes Physical Exam - Summary Physical Exam Summary: No swelling, erythema, ecchymosis, deformity, extra warmth, wound noted to bilateral knees, bilateral lower extremity is. PMS intact distally bilaterally. No evidence of DVT on exam. Mild tenderness to palpation along lateral and medial aspects of right knee. Normal range of motion with pain of right knee. Triage Information Reviewed: Yes Vital Signs On Initial Exam: Initial Vitals Temp Pulse Resp BP Pulse Ox 97.9 F 91 16 133/78 94 08/19/18 15:15 08/19/18 15:15 08/19/18 15:15 08/19/18 15:15 08/19/18 15:15 Vital Signs Reviewed: Yes Appearance: Positive: Well-Appearing Skin: Positive: Warm Head/Face: Positive: Normal Head/Face Inspection Eyes: Positive: Normal Neck: Positive: Supple Respiratory/Lung Sounds: Positive: Clear to Auscultation Cardiovascular: Positive: Normal Abdomen Description: Positive: Nontender Musculoskeletal: Positive: Normal Neurological: Positive: Normal Psychiatric: Positive: Normal AVPU Assessment: Alert - Burton Coma Scale Best Eye Response: 4 - Spontaneous Best Motor Response: 6 - Obeys Commands Best Verbal Response: 5 - Oriented Coma Scale Total: 15 Diagnostics - Vital Signs Vital Signs Temp Pulse Resp BP Pulse Ox 08/19/18 15:15 97.9 F 91 16 133/78 94 - Laboratory Lab Statement: Any lab studies that have been ordered have been reviewed, and results considered in the medical decision making process. - Ultrasound No standard instances Ultrasound Interpretation: No Acute Changes - Negative for DVT bilaterally Ultrasound Interpretation Completed By: Radiologist Lower Extremity Course/Dx - Course Course Of Treatment: Patient complains of right knee pain, and anterior aguilar and posterior thigh cramps x 2 weeks. Denies trauma, SOB, CP, history of blood clots, , recent surgery or trauma. Patient is ambulatory with pain in right knee. Patient states right knee pain worse with weightbearing. Knee pain okay at rest. Medical history is DM 2, HTN, HDL. Nonsmoker, denies EtOH. Physical exam:No swelling, erythema, ecchymosis, deformity, extra warmth, wound noted to bilateral knees, bilateral lower extremity is. PMS intact distally bilaterally. No evidence of DVT on exam. Mild tenderness to palpation along lateral and medial aspects of right knee. Normal range of motion with pain of right knee. Vital signs within normal limits. Ultrasound negative for DVTs bilaterally. Follow-up with orthopedics. - Diagnoses Provider Diagnoses: Right knee pain, Muscle cramps Discharge - Sign-Out/Discharge Documenting (check all that apply): Patient Departure - Discharge Plan Condition: Stable Disposition: HOME Prescriptions: HYDROcodone/ACETAMIN 5-325 MG* [[place] 5-325 TAB*] 1 tab PO Q6H PRN 2 Days #4 tab MDD 4 tabs PRN Reason: Pain Patient Education Materials: Leg Cramps (ED), Swollen Knee Joint (ED), Knee Pain (ED) Referrals: David Taylor MD [Primary Care Provider] - Maria Eugenia Hunter MD [Medical Doctor] - Additional Instructions: Follow-up with orthopedics Dr Hunter for further evaluation of right knee pain. Rest, ice, Tylenol or ibuprofen for pain. Return to the ED for any new or worsening symptoms - Billing Disposition and Condition Condition: STABLE Disposition: Home
--- NOTE | 2018-08-19 17:44 | RAD ---
Indication: RIGHT knee pain and unable to bear weight today. Comparison: None. Technique: RIGHT knee: AP, tunnel, crosstable lateral, sunrise views. Report: Negative for joint effusion, fracture, or malalignment. Mild osteophytosis. Negative for significant joint space narrowing. Nonfocal soft tissue swelling. IMPRESSION: #. Nonfocal soft tissue swelling without significant additional radiographic abnormality.
[2018-08-19 18:48] VITALS: BP 158/80
== END 2018-08-19 18:47 | disposition home or self-care (01) ==
LOC: ED 15:04
DX: M25.561 Pain in right knee (principal); M62.838 Other muscle spasm; M79.89 Other specified soft tissue disorders; E11.9 Type 2 diabetes mellitus without complications; I10 Essential (primary) hypertension; E78.5 Hyperlipidemia, unspecified; F41.9 Anxiety disorder, unspecified; F32.9 Major depressive disorder, single episode, unspecified; Z87.891 Personal history of nicotine dependence; Z79.84 Long term (current) use of oral hypoglycemic drugs; Z79.4 Long term (current) use of insulin; Z79.899 Other long term (current) drug therapy; Z88.8 Allergy status to other drugs, medicaments and biological substances
CPT/HCPCS: 93970; 99282

== ENCOUNTER 2018-09-27 10:16 | Inpatient (IN) | payer BC ==
[~2018-09-27 10:16] MED LIST changes: +Buffered Lidocaine 0.9% SYRIN* 5 ML/SYR SYRINGE INTRADERM ONE; -Buffered Lidocaine 1% SYRIN* 3 ML/SYR SYRINGE INTRADERM ONE; -Insulin REGULAR(*) 1 UNITS UNIT SUBCUT ONE; +Metoclopramide IV* 5 MG/ML 2 ML VIAL IV SLOW PU ONE
[2018-09-27] MEDS ORDERED: Famotidine IV* 10 MG/ML 2 ML (20 mg) ONE (11:09)
[2018-09-27] MEDS ORDERED: ceFAZolin 2 GM PREMIX in ORs 2 GM/50 ML BAG IVPB ONE (11:09)
[2018-09-27] MEDS ORDERED: Metoclopramide IV* 5 MG/ML 2 ML VIAL ONE (11:10)
[2018-09-27] MEDS ORDERED: Insulin LISPRO* 1 UNITS UNIT SUBCUT ONE (12:32)
[2018-09-27] MEDS ORDERED: EPINEPHRINE 1 MG/ML 1 ML VIAL ONE (12:52)
[2018-09-27] MEDS ORDERED: Bupivacaine 0.5% W/EPI SDV* 30 ML VIAL ONE (12:52)
[2018-09-27] MEDS ORDERED: fentaNYL* 50 MCG/ML 2 ML VIAL (100 MCG VIAL) ONE (13:04)
[2018-09-27] MEDS ORDERED: Propofol* 10 MG/ML 20 ML BTL IV PUSH ONE (13:04)
[2018-09-27] MEDS ORDERED: Midazolam* 1 MG/ML 2 ML VIAL (2 MG) ONE (13:04)
[2018-09-27] MEDS ORDERED: Lidocaine 2% PF * 5 ML VIAL ONE (13:05)
[2018-09-27] MEDS ORDERED: Phenylephrine INJ* 10 MG/ML 1 ML VIAL (10 MG) ONE (13:25)
[2018-09-27] MEDS ORDERED: Ondansetron INJ* 2 MG/ML VIAL ONE (13:38)
[2018-09-27] MEDS ORDERED: DiMENhydriNATE IV* 50 MG/ML VIAL IV PUSH PRN (13:43)
[2018-09-27] MEDS ORDERED: fentaNYL* 50 MCG/ML 2 ML VIAL (100 MCG VIAL) IV PRN (13:43)
[2018-09-27] MEDS ORDERED: Ketorolac INJ* 30 MG/ML 1 ML VIAL IV PRN (13:43)
[2018-09-27] MEDS ORDERED: oxyCODONE/Acetamin 5/325 MG* TAB PO PRN (13:43)
[2018-09-27] MEDS ORDERED: Naloxone* 0.4 MG/ML 1 ML VIAL IV PRN (13:43)
[2018-09-27] MEDS ORDERED: HYDROcodone/ACETAMIN 5-325 MG* 1 TAB PO PRN (13:43)
[2018-09-27] MEDS ORDERED: oxyCODONE/Acetamin 5/325 MG* TAB ONE (15:16)
[2018-09-27] MEDS ORDERED: diPHENhydraMINE IV* 50 MG/ML 1 ml VIAL (BENADRYL) IV PRN (16:17)
[2018-09-27] MEDS ORDERED: Acetaminophen TAB* 325 MG PO PRN (16:17)
[2018-09-27] MEDS ORDERED: Ondansetron INJ* 2 MG/ML VIAL IV PRN (16:17)
[2018-09-27] MEDS ORDERED: INSULIN ASPART SUBCUT PRN (16:21)
[2018-09-27] MEDS ORDERED: Dextrose 50% Syringe 50 ML* 25 GM/50 ML SYRINGE IV PUSH PRN (17:47)
[2018-09-27] MEDS: traMADol TAB* 50 MG PO PRN (18:27)
[2018-09-27] MEDS: Gabapentin CAP(*) 300 MG PO SCH (21:02)
[2018-09-27] MEDS: Insulin GLARGINE(*) 1 UNITS UNIT SUBCUT SCH (21:05)
[2018-09-27] MEDS: Oxybutynin TAB* 5 MG PO SCH ×2 (22:10→22:11)
[2018-09-27] MEDS: Cetirizine* 10 MG TAB PO SCH (22:10)
[2018-09-27] MEDS: oxyCODONE/Acetamin 5/325 MG* TAB PO PRN (22:11)
[2018-09-28] MEDS: traMADol TAB* 50 MG PO PRN ×2 (00:30→20:34)
[2018-09-28] MEDS: oxyCODONE/Acetamin 5/325 MG* TAB PO PRN ×5 (01:58→22:30)
[2018-09-28] MEDS: FLUoxetine CAP* 20 MG PO SCH (09:04)
[2018-09-28] MEDS: Insulin LISPRO* 1 UNITS UNIT SUBCUT SCH ×3 (09:05→18:39)
[2018-09-28] MEDS: amLODIPine TAB* 5 MG PO SCH (09:05)
[2018-09-28] MEDS: Gabapentin CAP(*) 300 MG PO SCH ×3 (09:05→20:33)
[2018-09-28] MEDS: Oxybutynin TAB* 5 MG PO SCH ×2 (09:05→20:34)
[2018-09-28] MEDS: Insulin GLARGINE(*) 1 UNITS UNIT SUBCUT SCH ×2 (09:06→20:55)
--- NOTE | 2018-09-28 09:32 | PN ---
Progress Note - Progress Note Date of Service: 09/28/18 SOAP: Subjective: [Pt reports L knee pain 08/05. Has been up to bathroom but has ambulated no further. Denies CP,nausea, dizziness. On O2. Tells me she has no help at home. ] Objective: [A and O x 3, NAD. Seated in chair. L knee dressing C/D/I. Cryounit in place. Calf soft, NT. Distal gross motor, NV function intact. Vital Signs: Temp Pulse Resp BP Pulse Ox 98.0 F 78 18 143/71 100 09/28/18 04:07 09/28/18 04:07 09/28/18 09:05 09/28/18 04:07 09/28/18 04:07 Laboratory Results - last 24 hr 09/27/18 09/27/18 09/27/18 12:14 13:47 21:09 POC Glucose (mg/dL) 206 H 174 H 218 H 09/28/18 08:25 POC Glucose (mg/dL) 163 H ] Assessment: [63 yo female s/p L knee arthroscopy POD #1] Plan: [Pain management Physical therapy - WBAT LLE Elevation of LLE IS Plan for D/C home tomorrow]
[2018-09-28] MEDS: Cetirizine* 10 MG TAB PO SCH (20:34)
[2018-09-29] MEDS: oxyCODONE/Acetamin 5/325 MG* TAB PO PRN ×4 (04:02→20:06)
[2018-09-29] MEDS: amLODIPine TAB* 5 MG PO SCH (07:46)
[2018-09-29] MEDS: FLUoxetine CAP* 20 MG PO SCH (07:46)
[2018-09-29] MEDS: Docusate CAP* 100 MG PO PRN ×2 (07:46→20:07)
[2018-09-29] MEDS: Gabapentin CAP(*) 300 MG PO SCH ×3 (07:48→20:06)
[2018-09-29] MEDS: Oxybutynin TAB* 5 MG PO SCH ×2 (07:48→20:07)
--- NOTE | 2018-09-29 08:20 | PN ---
Progress Note - Progress Note Date of Service: 09/29/18 SOAP: Subjective: [Patient reports more pain today than yesterday. Has had to use bedside commode because difficult to walk to bathroom. Concerned about being home alone. Denies CP, Nausea, Dizziness] Objective: [A and O x 3, NAD. Appears to resting comfortably in bed. R knee dressing changed. Portal sites benign. No drainage or erythema. Mild swelling R knee. Calf soft , NT. Distal gross motor, NV function intact Vital Signs: Temp Pulse Resp BP Pulse Ox 98.6 F 79 18 143/70 97 09/29/18 07:56 09/29/18 07:56 09/29/18 08:00 09/29/18 07:56 09/29/18 08:00 Laboratory Results - last 24 hr 09/28/18 09/28/18 09/28/18 11:55 17:40 20:51 POC Glucose (mg/dL) 210 H 164 H 201 H ] Assessment: [63 yo female s/p R knee arthroscopy POD #2] Plan: [Encourage OOB - ambulation, ROM PT - WBAT RLE Elevate R leg while in bed Pain management Plan for D/C home tomorrow]
[2018-09-29] MEDS: Insulin GLARGINE(*) 1 UNITS UNIT SUBCUT SCH ×2 (09:24→22:32)
[2018-09-29] MEDS: Insulin LISPRO* 1 UNITS UNIT SUBCUT SCH ×3 (09:24→18:02)
[2018-09-29] MEDS: Naproxen TAB* 250 MG PO SCH ×2 (12:01→23:41)
[2018-09-29] MEDS: Cephalexin CAP* 500 MG PO SCH ×2 (13:20→20:07)
[2018-09-29] MEDS: traMADol TAB* 50 MG PO PRN ×2 (16:38→23:41)
[2018-09-29] MEDS: Cetirizine* 10 MG TAB PO SCH (20:07)
--- NOTE | 2018-09-30 01:02 | OP ---
DATE OF OPERATION: 09/27/18 - ROOM #341 DATE OF : 59 SURGEON: Bib Henao MD INDIVIDUAL SMALL GROUP INSTRUCTOR: SUMAN Mcneill. A physician assistant sales director was required for the length of the procedure for assistance with positioning, knee manipulation, and closure. ANESTHESIOLOGIST: Dr. Jaja Wilson. ANESTHESIA: General anesthesia, local anesthesia consisting of 0.5% Marcaine with epinephrine, 10 cc, placed subcutaneous. PRE-OP DIAGNOSIS: Right knee lateral meniscus tear. POST-OP DIAGNOSIS: Right knee lateral meniscus tear. OPERATIVE PROCEDURE: Right knee arthroscopic partial lateral meniscectomy. ANTIBIOTICS: Ancef 2 g IV. IV FLUIDS: See anesthesia note. TOURNIQUET TIME: 23 minutes at 300 mmHg. OFUX-MO-ZBDL TIME: Approximately 19 minutes. SPECIMENS: None. IMPLANTS: None. ESTIMATED BLOOD LOSS: Minimal. 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 The patient corrected her account to state that she had been in pain since May or June 2018 but that it had exacerbated in July. At one point, the patient had stayed in bed for several days because of the significance of the pain. The patient declined a cortisone injection. We got an MRI, which demonstrated a lateral meniscus tear. Described as complex by radiologist. I felt there was a possibility of a root tear. We discussed treatment options including physical therapy, cortisone injection, or surgical management. The patient was uninterested in cortisone injections because of her diabetes mellitus and a possible temporary increase in serum blood glucose level. Given the severity of the patient's pain, her difficulty walking and weightbearing, the patient opted for surgery rather than physical therapy. The patient was noted to have an elevated hemoglobin A1c level. Given the significance of the patient's pain, the patient was wiling to accept any increased risk of complication, specifically infection, given this poorly controlled diabetes. We discussed this with the patient's primary care physicians and they felt comfortable with her proceeding forward with surgery. Also of note was the patient's BMI of 47.5. On the initial planned date for surgery, the patient presented with an upper respiratory infection and wheezing on exam. We canceled the surgery. The patient was treated for this infection by her primary care physician and returned for surgery when that had resolved. The patient did note in preoperative workup to perioperative nursing staff that she had required admissions for multiple prior procedures because of low oxygen saturations. The patient states that she has a CPAP or BiPAP at home, but does not use it. DESCRIPTION OF THE PROCEDURE: Preoperatively, the patient signed a written consent. Operative extremity was marked in preoperative holding. The patient was taken back to the operating room and placed supine on the operating room table. Anesthesia kept the bed in some reverse Trendelenburg to assist with the patient's breathing. The patient was sedated and intubated. A tourniquet was placed around the right proximal thigh and the right distal thigh was placed in a circumferential thigh robert. The table was elevated and the foot of the table was dropped. The right lower extremity was prepped with chlorhexidine and ChloraPrep. Surgical time- out was performed. Esmarch was applied and the tourniquet was elevated to 300 mmHg. Right knee anterolateral arthroscopy portal was established using standard technique. The patient had some bursitis in the anterior compartment. I got down to the anterior compartment of the knee. Because of the shelf of synovitic tissue anteriorly, I first established an anteromedial portal to debride this. I entered an arthroscopic shaver through the anteromedial portal and I debrided the shelf of synovitic tissue anteriorly as well as the ligamentum mucosum. There was some minimal wear in the patellofemoral compartment, the undersurface of the patella it should be noted, a grade 1 or 2. I next proceeded to the medial compartment. No significant meniscus or articular cartilage changes there. ACL and PCL were intact. We proceeded to the lateral compartment. The patient had grade 1 and grade 2 changes throughout the lateral femoral condyle and lateral tibial plateau. There was meniscus tearing, complex, in the body and posterior horn of the lateral meniscus. This also, I found, involved the anterior horn. Working through the medial and then the lateral portals, I debrided the meniscus , lateral, back to a stable rim with arthroscopic shaver and meniscus biters. I had been concerned preoperatively about a possible posterior root tear. There was none. There were no large displaced flaps. This was a complex relatively nondisplaced tear. As I debrided the anterior horn in the anterior aspect of the body, I noted that the tear was predominantly horizontal in this location. The inner surface of the meniscus was of very poor quality in this location. I considered debriding back the 2 flaps of the meniscus anteriorly, but I limited the amount of my debridement, so as not to remove the entire anterior horn. This appeared stable. The patient had no focal articular cartilage loss, it was just more thorough grade 1 and 2 changes throughout the lateral compartment articular cartilage. I removed the instruments and fluids from the knee. Closed the skin incisions with [id number] and 12 stitches using nylon 3-0 suture. Placement of local anesthetic into the subcutaneous tissues, Marcaine 0.5% with epinephrine. Xeroform, 4x4s, ABDs, sterile Webril, Yehuda bandage, foot to proximal thigh. Tourniquet was dropped. Cooling unit was placed. The patient was awakened, extubated, and transferred to the PACU. DISPOSITION: In the PACU, the patient had low oxygen saturations, as she herself had predicted to nurses in preoperative holding, given her history of low oxygen saturations postoperatively even after very short procedures such as this. The patient was therefore admitted to the hospital for respiratory therapy and possible medical management of this. Her blood glucoses would be controlled. Physical therapy for aggressive range of motion and strengthening. The patient will be given aspirin for 2 weeks postoperatively for DVT prophylaxis as well as Percocet as needed for pain control. Due to the patient' s poorly controlled diabetes with a hemoglobin A1c of approximately 9.7, I decided to err on the side of caution and prescribed the patient 5 days of Keflex oral antibiotics over and above the Ancef 2 g given to the patient perioperatively. The patient will follow up with me in clinic 10 to 14 days postoperatively. She will be discharged from the hospital when medically stable and safe to return home. [id number]/[facility] #: [id number] DAX
[2018-09-30] MEDS: Cephalexin CAP* 500 MG PO SCH (08:55)
[2018-09-30] MEDS: FLUoxetine CAP* 20 MG PO SCH (08:55)
[2018-09-30] MEDS: traMADol TAB* 50 MG PO PRN (08:56)
[2018-09-30] MEDS: Oxybutynin TAB* 5 MG PO SCH (08:56)
[2018-09-30] MEDS: amLODIPine TAB* 5 MG PO SCH (08:56)
[2018-09-30] MEDS: oxyCODONE/Acetamin 5/325 MG* TAB PO PRN (08:57)
[2018-09-30] MEDS: Gabapentin CAP(*) 300 MG PO SCH (08:58)
[2018-09-30] MEDS: Insulin GLARGINE(*) 1 UNITS UNIT SUBCUT SCH (09:03)
[2018-09-30] MEDS: Insulin LISPRO* 1 UNITS UNIT SUBCUT SCH (09:05)
[2018-09-30] MEDS: Docusate CAP* 100 MG PO PRN (09:19)
--- NOTE | 2018-09-30 10:49 | PN ---
Progress Note - Progress Note Date of Service: 09/30/18 SOAP: Subjective: []Patient was seen and examined at bedside. She feels well with well controlled right knee pain. Denies CP, SOB, dizziness, nausea. Objective: []General: Well appearing, NAD RLE: Dressing changed, incisions CDI without discharge or erythema. ROM 5-90 without pain. Calves supple and nontender without erythema or edema. Assessment: [] POD 3 s/p R knee arthroscopic PLM. DM, poorly controlled, chronic disordered breathing Plan: [] Encouraged movement, OOB, PT Continue Keflex 500mg po tid x 5 days given the patient's poorly controlled diabetes and poor general health DC home today ASA 325 BID until follow up Trial off of O2. Per patient her breathing has been baseline Temp Pulse Resp BP Pulse Ox 98.0 F 74 18 146/68 97 09/30/18 07:59 09/30/18 07:59 09/30/18 10:46 09/30/18 07:59 09/30/18 07:59
[2018-09-30] MEDS: Naproxen TAB* 250 MG PO SCH (11:11)
[2018-09-30 12:11] VITALS: BP 145/52
--- NOTE | 2018-10-01 01:53 | DS ---
DISCHARGE SUMMARY: DATE OF ADMISSION: 09/27/18 DATE OF DISCHARGE: 09/30/18 PROVIDER: Bib Henao MD * (DICTATED BY SUMAN REYES) PRE-OP DIAGNOSIS: Right knee lateral meniscus tear. OPERATIVE PROCEDURE: Right knee arthroscopic partial lateral meniscectomy. HISTORY: The patient is a 63-year-old woman with right knee pain since either May or June 2018 after a fall at home, pain worsening in July 2018. The patient declined a cortisone injection. MRI showed a lateral meniscus tear. The patient was offered both surgical and nonsurgical options and she elected to undergo a right knee arthroscopic partial lateral meniscectomy. HOSPITAL COURSE: The patient was admitted to [facility] on . She underwent a right knee arthroscopic partial lateral meniscectomy without complication. She recovered briefly in the PACU. Due to low oxygen saturations, the patient was admitted to the hospital. On postop day 1, she was alert and oriented x3, in no acute distress. Distal gross motor and neurovascular function was intact. Postop day 2, the patient was feeling unsafe to go home and having a significant amount of pain. Postop day 3, dressing was changed, incisions clean, dry, and intact without discharge or erythema. Range of motion 5 to 90 without pain. The patient was feeling safe to go home today. During her stay, she was using oxygen between 1 and 5 L on day of discharge; before discharge, her oxygen was removed and she maintained an oxygen saturation of 100%. The patient was deemed to be medically and orthopedically stable for discharge to home. DISCHARGE DISPOSITION: To home. DISCHARGE MEDICATIONS: The patient will be resuming her home medications, which include: 1. Prozac 40 mg p.o. q.a.m. 2. Oxybutynin 5 to 10 mg p.o. b.i.d. 3. Vitamin C 1000 mg p.o. q.a.m. 4. Xyzal 5 mg p.o. bedtime. 5. Omeprazole 20 mg p.o. q.a.m. 6. Insulin 22 units subcu b.i.d. 7. Exenatide microspheres 2 mg subc as directed. 8. EpiPen as needed. 9. Amlodipine 5 mg p.o. q.a.m. 10. Gabapentin 300 mg p.o. t.i.d. 11. Acetaminophen 1000 mg p.o. q.6 hours p.r.n. 12. Docusate 100 mg p.o. b.i.d. p.r.n. 13. Insulin aspart 18 to 20 units subcu a.c. p.r.n. 14. Simvastatin 20 mg p.o. bedtime. 15. Vitamin D3 2000 units p.o. q.a.m. 16. Tramadol 50 mg p.o. q.6 hours p.r.n., max daily dose of 6. 17. Aspirin 325 mg p.o. b.i.d. for 2 weeks. 18. Keflex 500 mg p.o. t.i.d. for the remainder of 5 days. DISCHARGE PLAN: The patient will be discharged to home. She will be weightbearing as tolerated. She will start physical therapy outpatient right away. She may change her dressing daily with gauze and Yehuda wrap. She may shower, do not submerge the wound. Aspirin 325 mg every 12 hours until followup appointment. Keflex 500 mg every 8 hours for 5 days. Pain control with tramadol 50 mg 1 tablet every 4 to 6 hours, max of 6 per day, wean off as soon as pain allows. Follow up with Dr. Henao in 10 to 14 days postop. Call our office with any concerns to make a postop appointment. SUMAN REYES [id number]/[facility] #: [id number] DAX
[2018-10-01] MEDS ORDERED: EXENATIDE MICROSPHERES 2 MG SC SCH (16:21)
== END 2018-09-30 12:15 | disposition home health service (06) | DRG 313 ==
LOC: OR 10:16 → SSU 16:17
PROVIDERS: ADMIT Orthopaedic Surgery; ATTEND Orthopaedic Surgery
PROC: 0SBC4ZZ Excision of Right Knee Joint, Percutaneous Endoscopic Approach (ICD-10-PCS; principal; 2018-09-27 12:45)
DX: S83.271A Complex tear of lateral meniscus, current injury, right knee, initial encounter (principal); Z68.42 Body mass index [BMI] 45.0-49.9, adult; I10 Essential (primary) hypertension; K21.9 Gastro-esophageal reflux disease without esophagitis; E66.01 Morbid (severe) obesity due to excess calories; M17.11 Unilateral primary osteoarthritis, right knee; M19.012 Primary osteoarthritis, left shoulder; E78.2 Mixed hyperlipidemia; K58.9 Irritable bowel syndrome, unspecified; E11.43 Type 2 diabetes mellitus with diabetic autonomic (poly)neuropathy; K31.84 Gastroparesis; G47.33 Obstructive sleep apnea (adult) (pediatric); M70.51 Other bursitis of knee, right knee; W19.XXXA Unspecified fall, initial encounter; E11.65 Type 2 diabetes mellitus with hyperglycemia; E78.00 Pure hypercholesterolemia, unspecified; E55.9 Vitamin D deficiency, unspecified; E11.42 Type 2 diabetes mellitus with diabetic polyneuropathy; F41.1 Generalized anxiety disorder; F32.9 Major depressive disorder, single episode, unspecified; Z80.42 Family history of malignant neoplasm of prostate; Z82.61 Family history of arthritis; Z80.8 Family history of malignant neoplasm of other organs or systems; Z83.6 Family history of other diseases of the respiratory system; Z82.49 Family history of ischemic heart disease and other diseases of the circulatory system; Z80.51 Family history of malignant neoplasm of kidney; Z83.49 Family history of other endocrine, nutritional and metabolic diseases; Z99.81 Dependence on supplemental oxygen; Z79.82 Long term (current) use of aspirin; Z79.4 Long term (current) use of insulin; Y92.009 Unspecified place in unspecified non-institutional (private) residence as the place of occurrence of the external cause; Z90.49 Acquired absence of other specified parts of digestive tract; Z90.710 Acquired absence of both cervix and uterus; Z88.8 Allergy status to other drugs, medicaments and biological substances
CPT/HCPCS: 94660; A9270-GY; J0690; J2250; J2405; J2704; J2765; J3010

== ENCOUNTER 2019-10-16 11:20 | Emergency (ER) | payer BC ==
[2019-10-16 11:31] VITALS: BP 145/68
--- NOTE | 2019-10-16 12:24 | UC ---
Hand/Wrist HPI - HPI Summary HPI Summary: Patient is a 64-year-old female presenting with pain of right fifth finger times one month. Patient states she fell a month ago and had "creaky feeling." She had berkley taped the finger and states pain has still gradually worsened. Notes there has been swelling and bruising of the finger and hand. Denies numbness and tingling. Notes decreased ROM of the finger. - History Of Current Complaint Chief Complaint: UCUpperExtremity Stated Complaint: FINGER INJURY Hx Obtained From: Patient Onset/Duration: Gradual Onset, Lasting Weeks Severity Initially: Mild Severity Currently: Mild Pain Intensity: 3 Pain Scale Used: 0-10 Numeric - Allergies/Home Medications Allergies/Adverse Reactions: Allergies Allergy/AdvReac Type Severity Reaction Status Date / Time OBEY Inhibitors Allergy Severe tongue Verified 10/16/19 11:32 swelling adhesive tape Allergy Unknown See Comment Verified 10/16/19 11:32 angiotensin receptor blockers Allergy Severe tongue Uncoded 10/16/19 11:32 swelling PMH/Surg Hx/FS Hx/Imm Hx Endocrine History: Dyslipidemia Cardiovascular History: Hypertension GI/ History: Gastroesophageal Reflux Other History Of: Negative For: Anticoagulant Therapy - Surgical History Surgical History: Yes Surgery Procedure, Year, and Place: removal of a bone spur LT SHOULDER-14 YEARS. LEFT SHOULDER SURGERY-2016. 1968- APPENDECTOMY. 1996- hysterectomy. 7 ABDOMINAL HERNIAS REPAIR X 1 SURGERY- STATES HAS MESH THROUGHOUT STOMACH,. KARAN FUNDOPLICATION & LAP CHOLECYSECTOMY - Family History Known Family History: Positive: Other - multiple CA, Non-Contributory - Social History Occupation: Employed Full-time Alcohol Use: None Substance Use Type: None Smoking Status (MU): Former Smoker Amount Used/How Often: 1 PPD X 14 YEARS Have You Smoked in the Last Year: No When Did the Patient Quit Smoking/Using Tobacco: 1991 - Immunization History Most Recent Influenza Vaccination: 2018 Most Recent Pneumonia Vaccination: 2015 Review of Systems All Other Systems Reviewed And Are Negative: No Skin: Positive: Bruising - R 5th digit Respiratory: Positive: Negative Cardiovascular: Positive: Negative Neurovascular: Positive: Negative Musculoskeletal: Positive: Arthralgia - R 5th finger, Decreased ROM, Edema Neurological: Negative: Paresthesia, Numbness Physical Exam Triage Information Reviewed: Yes Appearance: Well-Appearing, No Pain Distress, Well-Nourished Vital Signs: Initial Vital Signs Temp 97.4 F 10/16/19 11:28 Pulse 95 10/16/19 11:28 Resp 17 10/16/19 11:28 BP 145/68 10/16/19 11:28 Pulse Ox 98 10/16/19 11:28 Vital Signs Reviewed: Yes Eyes: Positive: Conjunctiva Clear ENT: Positive: Hearing grossly normal Neck: Positive: Supple Respiratory: Positive: No respiratory distress Cardiovascular: Positive: Pulses Normal, Brisk Capillary Refill Musculoskeletal: Positive: ROM Limited @ - flexion and extension of R small finger due to pain, Edema @ - 5th MCP joint, Other: - 5th MCP joint tenderness to palpation Neurological Exam: Other - sensation grossly intact Neurological: Positive: Alert Psychological: Positive: Age Appropriate Behavior Diagnostics - Radiology R fifth finger Radiology Interpretation Completed By: Radiologist Summary of Radiographic Findings: IMPRESSION: Fracture base of the proximal end of the proximal phalanx of the fifth digit. Hand/Wrist Course/Dx - Course Course Of Treatment: Discussed finger fracture with patient. She received splint and follow up instructions with ortho. She states having no desire to follow up, but I strongly encouraged her to so to make sure fracture properly heals. Patient voiced understanding. - Differential Dx/Diagnosis Provider Diagnosis: Fracture of proximal phalanx of finger Discharge ED - Sign-Out/Discharge Documenting (check all that apply): Patient Departure All imaging exams completed and their final reports reviewed: Yes - Discharge Plan Condition: Stable Disposition: HOME Patient Education Materials: Finger Fracture (ED) Referrals: João Guzmán MD [Medical Doctor] - Additional Instructions: As discussed, your xrays did show a fracture at the base of your small finger. You may continue to ice, take ibuprofen as directed, and wear the finger splint for pain relief. Wear the splint until you are able to follow up with orthopedics as listed below. - Billing Disposition and Condition Condition: STABLE Disposition: Home - Attestation Statements Provider Attestation: Per institutional requirements, I have reviewed the chart, however, I was not consulted specifically or made aware of this patient by the midlevel provider. I did not personally evaluate, interact with , or disposition this patient.
== END 2019-10-16 13:50 | disposition home or self-care (01) ==
LOC: UCEAST 11:20
DX: S62.616A Displaced fracture of proximal phalanx of right little finger, initial encounter for closed fracture (principal); I10 Essential (primary) hypertension; Z91.09 Other allergy status, other than to drugs and biological substances; Z87.891 Personal history of nicotine dependence; W19.XXXA Unspecified fall, initial encounter; Y92.9 Unspecified place or not applicable
CPT/HCPCS: 73140; 99213; G0463